=== PATIENT | male | born 1955 | race Caucasian/White ===

== ENCOUNTER 2016-12-26 17:29 | Emergency (ER) | payer BC, OTHER ==
[2016-12-26] MEDS ORDERED: ASPIRIN 81 MG TAB.CHEW ONE (17:40)
[2016-12-26] MEDS ORDERED: ASPIRIN 81 MG TAB.CHEW PO ONE (17:44)
[2016-12-26] MEDS ORDERED: NITROGLYCERIN 0.4 MG/TAB BTL SL ONE (17:47)
[2016-12-26 17:59] LABS: Hematocrit 37.5 % (42.0-52.0); Hemoglobin 13.3 gm/dL (13.5-18.0); Mean Cell Volume 89.3 fl (78-100); Mean Corpuscular Hemoglobin 31.7 pg (27-31); Mean Corpuscular Hgb Conc 35.5 g/dl (32-36); Mean Platelet Volume 10.7 fl (6.0-9.5); Neutrophil # 3.3 K/mm3 (1.3-6.0); Neutrophil % 55.5 % (42-75.0); Platelet Count 226 K/mm3 (150-450); Red Cell Distribution Width 13.1 % (11.5-14.0)
--- NOTE | 2016-12-26 18:03 | ERNOTE ---
Chest Pain/Cardiac HPI Chief Complaint: Chest Pain Time Seen by Provider: 12/26/16 17:30 Source: patient Exam Limitations: no limitations Immunizations: IMMUNIZATION HX Immunizations Up to Date Yes History of Influenza Vaccine Yes Hx Pneumococcal Vaccination No Allergies/Adverse Reactions: Allergies Penicillins Allergy (Verified 12/26/16 17:39) Hives as a child Home Medications: HOME MEDICATIONS Hydrochlorothiazide [Hydrodiuril] 25 mg PO DAILY 11/22/14 [Last Taken 11/22/14] Lisinopril 20 mg PO DAILY 11/22/14 [Last Taken 11/22/14] Narrative: Patient is coming to the ER from the [facility] for chest pain that he has had for three weeks intermittently. The pain is central without radiation, usually last five minutes, about five times per day but more recently increasing in frequency. He was seen in the [facility], did not have chest pain at that time and was referred here for further evaluation. He denies any associated symptoms. When asked about his heart rate he states that he saw his PCP ( Dr Alvarado) for that about two months ago and they are still working on a referral to cardiology, so he went to see Dr Guo today who called here at 16 :35, HR at that time was 44, BP 118/60. I explained at that point if patient has chest pain he needs to go to the closest hospital. On arrival here patient rates his pain 3/10, denies any lightheadedness (except for one episode yesterday) no syncope. Timing: intermittent Severity/Quality: moderate, aching Location: central Chest Pain Radiation: no radiation Activities at Onset: none Modifying Factors - Improves: Present: nothing. Absent: rest Modifying Factors - Worsens: Present: nothing. Absent: oxygen, breathing, eating, exercise, position, movement Nitro Today/Relief: no nitro taken today Aspirin Treatment Today: no aspirin today Associated Symptoms: Absent: dizziness, syncope, cough, fever/chills, palpitations, heartburn, nausea Prior Chest Pain/Cardiac Workup: Denies: prior chest pain Review of Systems - Review of Systems Constitutional: Absent: recent illness, fever ENT: Absent: pulling on ears Respiratory: Present: shortness of breath - occasionally with exertion Gastrointestinal/Abdominal: Absent: nausea, abdominal pain Genitourinary: Present: no symptoms reported Neurological: Absent: headache, dizziness/light-headedness, weakness, numbness - Patient's Past Medical History Patient History - Cardiac/Respiratory: Aneurysm, Hypertension Patient History - Cancer: No Hx of Cancer Patient History - Surgical Procedures: Appendectomy, Cholecystectomy, Other - aneurysm repair Patient History - Other: None - Social History Living Situations: home Abuse History: No History of abuse Psych History: No pertinent hx Smoking Status: Former smoker Alcohol Use: occasionally - socially, 15 drinks per week Drug Use: none - Immunizations Immunizations Up to Date: Yes Hx Pneumococcal Vaccination: No History of Influenza Vaccine: Yes Physical Exam - Physical Exam General Appearance: Present: wd/wn, alert, no apparent distress Eye Exam: Normal inspection: bilateral Respiratory: Present: no respiratory distress, normal breath sounds, no accessory muscle use, chest nontender, lungs clear Cardiovascular/Chest: Present: no murmur, normal peripheral pulses, bradycardia Gastrointestinal/Abdominal: Present: normal bowel sounds, nontender, nondistended Extremity Exam: Present: no edema Neurological Exam: Present: alert, oriented, normal mood/affect Skin Exam: Present: normal color, warm/dry ED Progress - Results and Orders Patient's Lab Results:: I have reviewed the patient's lab results. - Vital Signs Patient's Vital Signs:: I have reviewed the patient's vital signs. Vital Signs: Vital Signs 12/26/16 12/26/16 17:32 17:42 Temperature 36.5 C Pulse Rate 37 L 40 L Respiratory 14 10 L Rate Blood Pressure 145/64 156/65 O2 Sat by Pulse 97 96 Oximetry - EKG EKG: other - intermittent complete heart block, one in three supraventricular impulses are transmitted, with intermittent ventricular escape rhythm EKG read: Interp. by me - X-Ray X-Ray #1 X-Ray: chest - no acute Interpretation: Interp. by me - Progress/Reassessment Chief Complaint: Chest Pain Progress Note-Subjective: 12/26/16 18:28 chest pain resolved after nitro, discussed results with patient and recommended referral to cardiology, patient agrees 12/26/16 18:30 call to [facility], discussed with ERP , will check with receiving team member area operations director as he might not be able to implant pacemaker 12/26/16 18:40 discussed with ERP at [facility], receiving team member area operations director today doesn't implant pacemakers discussed with patient, would like transfer to [facility] 12/26/16 18:44 call to [facility], discussed with Dr Lam (ERP), accepted patient for transfer Departure - Departure Clinical Impression: AV block Chest pain Qualifiers: Chest pain type: precordial pain Qualified Code(s): R07.2 - Precordial pain Disposition: [facility] Condition: Good Referrals: Salma Guo, [Primary Care Provider] -
[2016-12-26 18:10] LABS: INR 0.97 INR (0.90-1.10); Prothrombin Time (Patient) 10.1 Seconds (9.4-11.4)
--- OUTSIDE RECORDS SUMMARY | 2016-12-26 18:12 | XMS REPORT | Continuity of Care Document ---
:1955 Author Organization [facility] [place] [address] Care Team Providers Name Role Phone Rodolfo Alvarado Primary Care Provider [phone] Source Comments This disclosure is being made pursuant to the [employer] program and may contain all information available regarding this patient.[facility] Active Allergies and Adverse Reactions Allergen Noted Date Severity Reactions Comments Penicillins 09/06/2016 High Hives Current Medications Be aware that medications may not be up to date as of this document. Alwaysverify current medications with the patient. Prescription Sig. Disp. Refills Start Date End Date Status ibuprofen (ADVIL,MOTRIN) Take 200 mg Active 200 MG tablet by mouth 4 (four) times daily. hydrochlorothiazide Take 1 tablet 90 tablet 3 11/02/2016 Active (HYDRODIURIL) 25 MG tablet by mouth daily. lisinopril Take 1 tablet 90 tablet 3 11/09/2016 Active (PRINIVIL,ZESTRIL) 20 MG by mouth tablet daily. Active Problems Problem Noted Date Essential hypertension, benign 09/06/2016 Screening for colon cancer 09/06/2016 Most Recent Encounters Date Type Specialty Providers Description 11/09/2016 Refill Family Medicine Cartert, JOSEPHINE Mitchell 11/02/2016 Refill Family Medicine Karol Vernon CMA 11/01/2016 Office Visit Family Medicine Rodolfo Alvarado MD Bradycardia (Primary Dx); Cardiac murmur, unspecified; Essential hypertension, benign Immunizations Name Dates Previously Given Next Due Tdap 05/15/2012 Social History Tobacco Use Types Packs/Day Years Used Date Former Smoker Smokeless Tobacco: Never Used Alcohol Use Drinks/Week oz/Week Comments Yes 1-2 Standard drinks or equivalent 0.6 - 1.2 Alcoholic Drinks/day: CURRENT ALCOHOL USER Last Filed Vital Signs Vital Sign Reading Time Taken Blood Pressure 128/67 11/01/2016 4:18 PM CDT Pulse 38 11/01/2016 4:18 PM CDT Temperature 35.9 C (96.7 F) 11/01/2016 4:18 PM CDT Respiratory Rate - - Height 1.753 m (5' 9") 11/01/2016 4:18 PM CDT Weight 81.012 kg (178 lb 9.6 oz) 11/01/2016 4:18 PM CDT Body Mass Index 26.36 11/01/2016 4:18 PM CDT Oxygen Saturation 99% 11/01/2016 4:18 PM CDT Plan of Care Patient Goal Type Goal Blood Pressure Blood Pressure below 140/90 Date Type Specialty Providers Description 02/01/2017 Appointment Family Medicine Rodolfo Alvarado MD [address] [place] [phone] (Fax) Health Maintenance Due Date Last Done Comments Hepatitis C Screening 1972 Colonoscopy 2004 Well Adult Visit 2004 Zoster Vaccine 60+ 2014 Influenza Immunization (#1) 2016 Tetanus/Pertussis (2 - Td) 05/15/2022 05/15/2012 Results from Last 3 Months Comprehensive metabolic panel (11/01/2016 4:36 PM) Component Value Range Glucose 92Comment: 60-100 mg/dL Fasting Plasma Glucose (FPG)<100 MG/DL Impaired Fasting Glucose (IFG) 100-125 MG/DL Provisional Diagnosis of Diabetes Mellitus > xl=937 MG/DL (Diagnosis Must Be Confirmed) BUN, Blood 25 8-26 mg/dL Creatinine 0.9 0.7-1.4 mg/dL Glomerular Filtration Rate 89 >80 mL/min/1.73mm2 Estimate Glomerlular Filtration Rate 103Comment:The estimated GFR >80 mL/min/1.73mm2 Estimate- has not been validated for women or patients with serious comorbid conditions, or with extremes of body size, muscle mass, or nutritional status. Calcium 8.5 8.4-10.2 mg/dL Sodium 141 136-145 mmol/L Potassium 3.9 3.4-4.9 mmol/L Chloride 109 99-111 mmol/L CO2 24.4 21.0-32.0 mmol/L Albumin 3.5 3.5-5.0 g/dL Total Protein 6.3 6.1-8.0 g/dL Bilirubin Total 0.4 0.2-1.2 mg/dL Alkaline Phosphatase 59 40-150 U/L AST 18 5-34 U/L ALT 16 0-55 u/L Narrative Testing performed at [facility], [address] [place] [address].Director Of Rot[employer] Adis Cardenas MD CBC auto differential (11/01/2016 4:36 PM) Component Value Range WBC 6.8 3.1-11.0 x10^3/uL RBC 4.10(L) 4.29-5.55 x10^6/uL Hemoglobin 12.9(L) 13.3-16.5 g/dL Hematocrit 37.5(L) 39.2-48.0 % MCV 91.5 81.0-98.0 fL MCH 31.5 27.2-33.3 pg MCHC 34.4 31.7-35.6 g/dL RDW 12.9 11.4-13.6 % SD-RDW 41.8 36.4-46.3 fL Platelets 244 147-370 x10^3/uL MPV 11.6 9.1-12.1 fL NE% 58.4 42.0-76.0 % %LYMPH 30.7 15.0-44.0 % %MONO 7.1 4.0-13.0 % % Eosinophils 3.1 0.0-6.0 % % Basophils 0.4 0.0-1.0 % Imm Gran Relative 0.3 0.0-1.0 % NE# 3.9 1.2-7.3 x10^3/uL Lymphs # 2.1 0.6-3.5 x10^3/uL [place]# 0.5 0.2-0.9 x10^3/uL Eosinophil # 0.2 0.0-0.4 x10^3/uL Baso# 0.0 0.0-0.1 x10^3/uL Imm Gran Absolute 0.02 0.00-0.10 x10^3/uL Specimen BLOOD Narrative Testing performed at [facility], [address] [place] [address].Director Of [employer] Adis Cardenas MD
--- OUTSIDE RECORDS SUMMARY | 2016-12-26 18:12 | XMS REPORT | Continuity of Care Document ---
:1955 Author Organization [facility] ([facility]) Address [address] [place] [address] Phone [phone] Care Team Providers Name Role Phone Provider, No-Primary Care Primary Care Provider Unavailable Source Comments This disclosure is being made pursuant to the Care Everywhere program, applicable federal and state laws, and may not contain all informaitonavailable regarding this patient.[facility] ([facility]) Active Allergies and Adverse Reactions Allergen Noted Date Severity Reactions Comments Penicillin G 07/25/2011 Rash Current Medications Prescription Sig. Disp. Refills Start Date End Date Status Ibuprofen 200 mg Cap Take 200 mg by mouth Active every 6 hours. clobetasol 0.05 % BID x 2wks, then 120 g 1 07/25/2011 Active ointment wknds x 2wk, repeat PRN Indications: Atopic Dermatitis mupirocin (BACTROBAN) 2 apply topically 2 44 g 1 07/25/2011 Active % ointment times daily. Indications: Eczema triamcinolone 0.1 % Use BID between 60 g 1 10/24/2011 Active ointment clobetasol as needed Indications: dermatitis Active Problems Problem Noted Date Hand dermatitis 07/26/2011 Social History Tobacco Use Types Packs/Day Years Used Date Never Smoker Smokeless Tobacco: Never Used Tobacco Cessation:Counseling Given: Yes Comments: Plan of Care Health Maintenance Due Date Last Done Comments HCV Screening 1955 Hepatitis B Vaccine (1 of 3 - Primary Series) 1955 Tdap Vaccine 1965 Lipid Disorder Screening 1972 Td Vaccine 1972 Colonoscopy 12/10/2004 Prostate Cancer Screening 2004 Zoster Vaccine 2014 Influenza Vaccine: Seasonal (#1) 03/12/2016 Results from Last 3 Months Not on file
[2016-12-26 18:17] LABS: ALT 25 U/L (19-67); AST 17 U/L (0-48); Albumin * 3.6 gm/dl (3.4-5.0); Alkaline Phosphatase * 61 U/L (50-170); Anion Gap 12.3 mmol/L (6.8-13.8); BUN/Creatinine Ratio 21.1 (9.0-21.6); Bilirubin, Total 0.5 mg/dL (0.0-1.1); Blood Urea Nitrogen 24 mg/dL (6-23); Ca. Corrected For Albumin 8.4 mg/dL (8.4-10.2); Calcium * 8.4 mg/dL (7.9-10.9); Carbon Dioxide 29.2 mmol/L (24-32.6); Chloride 107 mmol/L (97-106); Glucose * 95 mg/dL (70-110); Potassium 3.5 mmol/L (3.4-4.6); Sodium 145 mmol/L (132-142); Total Protein 6.7 gm/dL (6.2-8.2); Troponin I Less than 0.017 ng/ml (0.00-0.10)
[2016-12-26 19:04] VITALS: BP 142/74
== END 2016-12-26 19:13 | disposition short-term general hospital (02) ==
LOC: ER 17:29
DX: I44.30 Unspecified atrioventricular block (principal); R07.2 Precordial pain; Z87.891 Personal history of nicotine dependence; I10 Essential (primary) hypertension